=== PATIENT | female | born 1935 | race Caucasian/White ===

== ENCOUNTER 2019-11-10 08:03 | Emergency (ER) | payer MEDICARE ==
[2019-11-10 08:10] VITALS: RESP 18; TEMP 97.5
--- NOTE | 2019-11-10 08:26 | ED ---
Skin/Abscess/FB HPI - General Chief complaint: Skin/Abscess/Foreign Body Stated complaint: Rash Time Seen by Provider: 11/10/19 08:10 Source: patient Mode of arrival: ambulatory Limitations: no limitations - History of Present Illness Initial comments: 84-year-old female with history of lichen sclerosis presenting today for chief complaint of rash x 2 weeks. Patient states she is a very itchy rash that has been ongoing for 2 weeks she states it was on the right side of face and her right forearm dorsal aspect. Patient states that her daughter was concerned that she had a scabies infection however this was never confirmed. Patient denies any specific lesions between the digits she states there is a slight itchy sensation of the thumb. She states itching is worse in the evenings/nights. Patient states that the rash spread to chest, and slightly high on face over the past 24 hours. Denies new medications. Denies new changes in soaps/detergents, lotions. Patient denies fevers, chills, general malaise. Denies travel, sick contact, denies diarrhea vomiting, oral involvement. Patient denies lip/tongue swellin gPatient appears well on arrival. No acute distress. Very pleasant. - Related Data Previous Rx's Medication Instructions Recorded Permethrin 5% Cream [Elimite] 1 applic TOPICAL ONCE 1 Days #30 11/10/19 gram predniSONE 50 mg PO DAILY 4 Days #4 tab 11/10/19 Allergies Allergy/AdvReac Type Severity Reaction Status Date / Time Sulfa (Sulfonamide Allergy Unknown Verified 11/10/19 08:10 Antibiotics) Review of Systems ROS Statement: Those systems with pertinent positive or pertinent negative responses have been documented in the HPI. ROS Other: All systems not noted in ROS Statement are negative. Past Medical History Past Medical History: No Reported History History of Any Multi-Drug Resistant Organisms: None Reported Past Surgical History: Hysterectomy Past Psychological History: No Psychological Hx Reported Smoking Status: Never smoker Past Alcohol Use History: Daily Past Drug Use History: None Reported General Exam - General Exam Comments Initial Comments: General: The patient is awake and alert, in no distress Eye: +3 mm pupils are equal, round and reactive to light, extra-ocular movements are intact. No nystagmus. There is normal conjunctiva bilaterally. No signs of icterus. Ears, nose, mouth and throat: There are moist mucous membranes and no oral lesions. No tongue or lip swelling. Neck: The neck is supple, there is no tenderness or JVD. Cardiovascular: There is a regular rate and rhythm. No murmur, rub or gallop is appreciated. Respiratory: Lungs are clear to auscultation, respirations are non-labored, breath sounds are equal. No wheezes, stridor, rales, or rhonchi. Musculoskeletal: Normal ROM, no tenderness. Strength 5/5. Sensation intact. Radial pulses equal bilaterally 2+. Neurological: A&O x 3. CN II-XII intact grossly, There are no obvious motor or sensory deficits. Coordination appears grossly intact. Speech is normal. Skin: Skin is warm and dry and no rashes. Slight redness, circular, raised lesion two on the right forearm dorsal aspect, no wamrth, no drainage, no diffuse surrounding redness, there is a similar lesions on right side of face, anterior chest and between thumb and index finger. Patient has no additional involved areas. Psychiatric: Cooperative, appropriate mood & affect, normal judgment. Limitations: no limitations Course Vital Signs 11/10/19 11/10/19 08:04 08:45 Temperature 97.5 F L Pulse Rate 65 71 Respiratory 18 18 Rate Blood Pressure 186/96 152/85 O2 Sat by Pulse 99 99 Oximetry Medical Decision Making - Medical Decision Making Rash nonspecific. Ddx includes scabies. No secondary cellulitis identified at this time. However complication discussed. Patient appears well, no new medications, ongoign x 2 weeks. I do not feel at this time that patient rash is life threatening recommend, oral steroids, permethrin and f/u with PCP and dermatology. Return to ER for worsening symptoms. Discussed case [facility] Dr. Gaytan including patient history who is agreeable to care plan and discharge at this time. Disposition Clinical Impression: Rash Disposition: HOME SELF-CARE Condition: Good Instructions (If sedation given, give patient instructions): Dermatitis (ED) Additional Instructions: Please use medication as discussed. Please follow-up with family doctor in the next 2 days, recommend dermatology follow-up in next 1-2 weeks. Please return to emergency room if the symptoms increase or worsen or for any other concerns. Prescriptions: Permethrin 5% Cream [Elimite] 1 applic TOPICAL ONCE 1 Days #30 gram predniSONE 50 mg PO DAILY 4 Days #4 tab Is patient prescribed a controlled substance at d/c from ED?: No Referrals: None,Stated [Primary Care Provider] - 1-2 days Sabrina Manuel MD [STAFF PHYSICIAN] - 1-2 days Time of Disposition: 08:25
[2019-11-10 08:46] VITALS: BP 152/85; PULSE 71
== END 2019-11-10 08:46 | disposition home or self-care (01) ==
LOC: EC 08:03
DX: R21 Rash and other nonspecific skin eruption (principal); Z88.2 Allergy status to sulfonamides; Z90.710 Acquired absence of both cervix and uterus
CPT/HCPCS: 99282